=== PATIENT | female | born 1960 | race Caucasian/White ===

== ENCOUNTER 2018-05-31 06:03 | Emergency (ER) | payer BC, OTHER ==
[2018-05-31] MEDS ORDERED: Sodium Chloride 0.9% 1000 ML 1,000 ML IV STA (06:38)
[2018-05-31] MEDS ORDERED: Zofran 4 MG/2 ML VIAL IV ONE (06:38)
[2018-05-31] MEDS ORDERED: MORPHINE SULFATE 10 MG/ML IV ONE (06:40)
[2018-05-31] MEDS ORDERED: Sodium Chloride 0.9% 1000 ML 1,000 ML ONE (06:43)
[2018-05-31] MEDS ORDERED: MORPHINE SULFATE 10 MG/ML ONE (06:43)
[2018-05-31] MEDS ORDERED: Zofran 4 MG/2 ML VIAL ONE (06:43)
[2018-05-31 06:48] LABS: BASOPHIL % 0.1 % (0.0-0.4); Basophil (Absolute #) 0.01 (0-0.4); Eosinophil % 0.3 % (0.00-5.0); Eosinophil (Absolute #) 0.02 (0-0.5); Granulocyte Absolute (ANC) 6.79 (1.4-6.9); Granulocytes % 85.4 % (36.0-66.0); Hematocrit 44.1 % (35-47); Hemoglobin 14.3 gm/dl (12.0-16.0); Lymphocyte (Absolute #) 0.69 (1.0-4.6); Lymphocytes % 8.7 % (24.0-44.0); Mean Corpuscular Hemoglobin 27.9 pg (26-32); Mean Corpuscular Hgb Concent. 32.4 g/dl (32-36); Mean Platelet Volume 12.1 fl (6-9.5); Monocyte (Absolute #) 0.44 (0.0-1.3); Monocytes % 5.5 % (0.0-12.0); Platelet Count 298 K/mm3 (150-450); Red Blood Count 5.13 M/mm3 (4.1-5.4); Red Cell Distribution Width 13.5 % (11.5-14.0)
[2018-05-31 06:54] LABS: ALBUMIN 4.7 g/dL (3.5-5.0); ALKALINE PHOSPHATASE 90 U/L (38-126); AMYLASE 56 U/L (30-110); ANION GAP 17.1 MEQ/L (5-15); BLOOD UREA NITROGEN 14 mg/dL (7-17); CHLORIDE 105 mmol/L (98-107); Calcium 9.6 mg/dL (8.4-10.2); Carbon Dioxide 20 mmol/L (22-30); Creatinine 1 0.81 mg/dL (0.52-1.04); Glucose 117 mg/dL (74-106); LIPASE 30 U/L (23-300); Potassium 3.8 mmol/L (3.5-5.1); SGOT/AST 33 U/L (14-36); SGPT/ALT 30 U/L (0-35); SODIUM 139 mmol/L (137-145); Total Protein 7.4 g/dL (6.3-8.2)
[2018-05-31 07:03] LABS: Slide Review 1 YES
--- NOTE | 2018-05-31 07:04 | ERPHSYRPT ---
- History of Present Illness Historian: patient Exam Limitations: clinical condition Patient Subjective Stated Complaint: pt is alert and oriented. pt is ambulatory with a steady gait. pt states that she has had n/v/d since 05/30/18 at 1200. pt states she has vomited "about 10 times" and had diarrhea "about 8 times" the past 24 hours. pt bowel sounds present. pt states she is having pain in the center of her upper abdomen. abd soft with palpatation, tender in the center of her upper abdomen. pt denies being able to hold down any food or drink since 1200 yesterday. pt mucus membranes slightly dry. Triage Nursing Assessment: see above Timing/Duration: yesterday Activities at Onset: none Quality: cramping, stabbing Abdominal Pain Onset Location: LLQ, suprapubic Pain Radiation: no radiation Severity of Pain-Max: moderate Severity of Pain-Current: moderate Modifying Factors: Improves With: defecating, vomiting Associated Symptoms: diarrhea, fever/chills, nausea Previous symptoms: no prior history Hx Tetanus, Diphtheria Vaccination/Date Given: No Hx Influenza Vaccination/Date Given: Yes (2017) Hx Pneumococcal Vaccination/Date Given: No <PRECIOUS KNUTSON - Last Filed: 05/31/18 06:40> <AISHWARYA FAYE - Last Filed: 05/31/18 08:15> - History of Present Illness Time Seen by Provider: 05/31/18 06:20 Physician History: PATIENT WITH A HISTORY OF DEPRESSION COMPLAINS OF FREQUENT EPISODES OF EMESIS AND WATERY DIARRHEA SINCE YESTERDAY MORNING ASSOCIATED WITH GENERALIZED ABDOMINAL PAIN, AND LOW GRADE FEVER. DENIES MELENA, URINARY SYMPTOMS (PRECIOUS KNUTSON) Allergies/Adverse Reactions: No Known Drug Allergies Allergy (Unverified 02/27/14 13:46) Home Medications: Bupropion HCl [Wellbutrin] 300 mg PO DAILY 05/31/18 [History] - Review of Systems Constitutional: Fever Eyes: No Symptoms Ears, Nose, & Throat: No Symptoms Respiratory: No Symptoms, No Cough, No Dyspnea Cardiac: No Symptoms, No Chest Pain, No Edema, No Syncope Abdominal/Gastrointestinal: Abdominal Pain, Nausea, Vomiting, No Diarrhea Genitourinary Symptoms: No Symptoms, No Dysuria Musculoskeletal: No Symptoms, No Back Pain, No Neck Pain Skin: No Rash Neurological: No Symptoms, No Dizziness, No Focal Weakness, No Sensory Changes Psychological: No Symptoms Endocrine: No Symptoms All Other Systems: Reviewed and Negative <PRECIOUS KNUTSON Filed: 05/31/18 06:40> - Past Medical History Pertinent Past Medical History: Yes Neurological History: No Pertinent History ENT History: No Pertinent History Cardiac History: No Pertinent History Respiratory History: No Pertinent History Endocrine Medical History: No Pertinent History Musculoskeletal History: No Pertinent History GI Medical History: Other History: No Pertinent History Psycho-Social History: Anxiety, Depression Female Reproductive Disorders: No Pertinent History - Past Surgical History Past Surgical History: Yes Gastrointestinal: Cholecystectomy Female Surgical History: Hysterectomy Other Surgical History: NASAL LESION - Social History Smoking Status: Never smoker Exposure to second hand smoke: No Drug Use: none Patient Lives Alone: No - Female History Hx Now: No <PRECIOUS KNUTSON Filed: 05/31/18 06:40> - Physical Exam General Appearance: no apparent distress, alert Eye Exam: PERRL/EOMI, eyes nml inspection Ears, Nose, Throat Exam: normal ENT inspection, pharynx normal, moist mucous membranes Neck Exam: normal inspection, non-tender, supple, full range of motion Respiratory Exam: normal breath sounds, lungs clear, No respiratory distress Cardiovascular Exam: regular rate/rhythm, normal heart sounds Gastrointestinal/Abdomen Exam: soft, normal bowel sounds, tenderness (LEFT LOWER QUAD AND PERIUMBILICAL, NO GUARDING OR REBOUND TENDERNESS), No mass Back Exam: normal inspection, normal range of motion, No CVA tenderness, No vertebral tenderness Extremity Exam: normal inspection, normal range of motion, pelvis stable Neurologic Exam: alert, oriented x 3, cooperative, normal mood/affect, nml cerebellar function, sensation nml, No motor deficits Skin Exam: normal color, warm, dry SpO2 Interpretation: normal SpO2: 95 Oxygen Delivery: Room Air <PRECIOUS KNUTSON Filed: 05/31/18 06:40> - Nursing Vital Signs Nursing Vital Signs: Initial Vital Signs Temperature 98.1 F 05/31/18 06:03 Pulse Rate 82 05/31/18 06:03 Respiratory Rate 16 05/31/18 06:03 Blood Pressure 106/66 05/31/18 06:03 O2 Sat by Pulse Oximetry 95 05/31/18 06:03 Pain Scale Pain Intensity 7 - CT Exams Abdomen/Pelvis CT Interpretation: Negative, Tele-radiologist Report (Per Dr Hatfield), Other ( liquid stool in colon) <AISHWARYA FAYE - Last Filed: 05/31/18 08:15> Ordered Tests: Active Orders 24 hr Category Date Time Status Catheter-[place] STAT Care 05/31/18 06:38 Active Orthostatic Vital Signs STAT Care 05/31/18 06:38 Active ABDOMEN AND PELVIS W/0 CONTRAS [CT] Stat Exams 05/31/18 06:39 Taken AMYLASE Stat Lab 05/31/18 06:20 Completed BLOOD CULTURE Stat Lab 05/31/18 06:50 Received BMP Stat Lab 05/31/18 06:20 Completed CBC W DIFF Stat Lab 05/31/18 06:20 Completed CMP Stat Lab 05/31/18 06:20 Completed LIPASE Stat Lab 05/31/18 06:20 Completed Occult Blood,Stool Other Stat Lab 05/31/18 06:38 Uncollected UA W/RFX UR CULTURE Stat Lab 05/31/18 06:38 Ordered Medication Summary Discontinued Medications Generic Name Dose Route Start Last Admin Trade Name Brad PRN Reason Stop Dose Admin Sodium Chloride 1,000 mls @ 999 mls/hr 05/31/18 06:38 05/31/18 06:49 Sodium Chloride 0.9% 1000 Ml IV 05/31/18 07:38 999 mls/hr .Q1H1M STA Administration Sodium Chloride Confirm 05/31/18 06:43 Sodium Chloride 0.9% 1000 Ml Administered 05/31/18 06:44 Dose 1,000 mls @ ud .ROUTE .STK-MED ONE Morphine Sulfate 6 mg 05/31/18 06:40 05/31/18 06:50 Morphine Sulfate 10 Mg/Ml IV 05/31/18 06:41 6 mg STAT ONE Administration Morphine Sulfate Confirm 05/31/18 06:43 Morphine Sulfate 10 Mg/Ml Administered 05/31/18 06:44 Dose 10 mg .ROUTE .STK-MED ONE Ondansetron HCl 4 mg 05/31/18 06:38 05/31/18 06:50 Zofran 4 Mg/2 Ml Vial IV 05/31/18 06:39 4 mg STAT ONE Administration Ondansetron HCl Confirm 05/31/18 06:43 Zofran 4 Mg/2 Ml Vial Administered 05/31/18 06:44 Dose 4 mg .ROUTE .STK-MED ONE Promethazine HCl 12.5 mg 05/31/18 07:34 Phenergan 25 Mg Inj IV 05/31/18 07:35 STAT ONE Promethazine HCl Confirm 05/31/18 07:59 Phenergan 25 Mg Inj Administered 05/31/18 08:00 Dose 25 mg .ROUTE .STK-MED ONE Lab/Rad Data: Laboratory Result Diagrams 05/31/18 06:20 05/31/18 06:20 Laboratory Results 05/31/18 05/31/18 Range/Units 06:20 06:20 WBC 8.0 (4.0-10.5) K/mm3 RBC 5.13 (4.1-5.4) M/mm3 Hgb 14.3 (12.0-16.0) gm/dl Hct 44.1 (35-47) % MCV 86.0 (78-100) fl MCH 27.9 (26-32) pg MCHC 32.4 (32-36) g/dl RDW 13.5 (11.5-14.0) % Plt Count 298 (150-450) K/mm3 MPV 12.1 H (6-9.5) fl Gran % 85.4 H (36.0-66.0) % Eos # (Auto) 0.02 (0-0.5) Absolute Lymphs (auto) 0.69 L (1.0-4.6) Absolute Monos (auto) 0.44 (0.0-1.3) Lymphocytes % 8.7 L (24.0-44.0) % Monocytes % 5.5 (0.0-12.0) % Eosinophils % 0.3 (0.00-5.0) % Basophils % 0.1 (0.0-0.4) % Absolute Granulocytes 6.79 (1.4-6.9) Basophils # 0.01 (0-0.4) Sodium 139 (137-145) mmol/L Potassium 3.8 (3.5-5.1) mmol/L Chloride 105 (98-107) mmol/L Carbon Dioxide 20 L (22-30) mmol/L Anion Gap 17.1 H (5-15) MEQ/L BUN 14 (7-17) mg/dL Creatinine 0.81 (0.52-1.04) mg/dL Estimated GFR > 60.0 ML/MIN Glucose 117 H (74-106) mg/dL Calcium 9.6 (8.4-10.2) mg/dL Total Bilirubin 0.40 (0.2-1.3) mg/dL AST 33 (14-36) U/L ALT 30 (0-35) U/L Alkaline Phosphatase 90 (38-126) U/L Serum Total Protein 7.4 (6.3-8.2) g/dL Albumin 4.7 (3.5-5.0) g/dL Amylase 56 (30-110) U/L Lipase 30 (23-300) U/L Slides for Path Review YES <PRECIOUS KNUTSON - Last Filed: 05/31/18 06:40> - Progress Progress: improved Counseled pt/family regarding: lab results, diagnosis, rad results <AISHWARYA FAYE - Last Filed: 05/31/18 08:15> - Progress Progress Note: 05/31/18 06:44 IV NORMAL SALINE 500ML/HR X 2, ZOFRAN 4MG, MORPHINE 6MG IV 05/31/18 07:04 PATIENT CARE ENDORSED TO DR FAYE (PRECIOUS KNUTSON) 05/31/18 07:13 Pt care discussed and care accepted from Dr Knutson at 07:00. 05/31/18 08:08 Pt given MSO4 6 mg, zofran 4 mg, phenergan 12.5 mg, and fluids by IV, feeling better. (AISHWARYA FAYE) <PRECIOUS KNUTSON - Last Filed: 05/31/18 06:40> - Departure Time of Disposition: 08:09 Departure Disposition: Home Critical Care Time: No <AISHWARYA FAYE - Last Filed: 05/31/18 08:15> - Departure Clinical Impression: Gastroenteritis Condition: Stable Referrals: CHRISTIAN HUSTON [Primary Care Provider] - Additional Instructions: You have vomiting and diarrhea (gastroenteritis). You were given morphine 6 mg , Zofran 4 mg, Phenergan 12-1/2 mg, and fluids by IV in the ER. You may take Zofran 4 mg ODT every 6 hours as needed for vomiting. You may take Lomotil 2 tablets every 6 hours as needed for diarrhea. Began with a full liquid diet and advance as tolerated. Follow-up with your primary medical doctor tomorrow if no improvement. Prescriptions: Diphenoxylate HCl/Atropine [Lomotil Tablet] 2 each PO Q6H PRN PRN #12 tablet PRN Reason: Diarrhea Ondansetron ODT 4 MG [Zofran Odt 4 mg] 1 tab PO Q6H PRN PRN #10 tab.rapdis PRN Reason: Nausea/Vomiting
[2018-05-31] MEDS ORDERED: Phenergan 25 MG INJ IV ONE (07:34)
[2018-05-31] MEDS ORDERED: Phenergan 25 MG INJ ONE (07:59)
[2018-05-31 08:37] VITALS: BP 98/78; PULSE 84; O2SAT 97
--- NOTE | 2018-05-31 11:01 | XRAY ---
Indication: Abdominal pain, nausea, vomiting, diarrhea. Multiple contiguous axial images obtained through the abdomen and pelvis without contrast as ordered. Comparison: None Lung bases demonstrates mild bibasilar dependent atelectasis. No infiltrate or effusion. Heart is not enlarged. Small hiatal hernia. Noncontrasted stomach and bowel loops appear nonobstructed. Normal appendix. Previous cholecystectomy and hysterectomy. No free fluid/air. Remaining liver, pancreas, spleen, adrenal glands, kidneys, ureters, bladder, and aorta appear unremarkable for noncontrast exam. Osseous structures intact with minimal degenerative changes throughout the spine. No ventral or inguinal hernias. Impression: 1. Small hiatal hernia. 2. Remaining CT abdomen/pelvis without contrast exam is negative. Comment: Preliminary interpretation was made by C. No critical discrepancy. CTDI 28.05
== END 2018-05-31 08:36 | disposition home or self-care (01) ==
LOC: ED 06:03
DX: K52.9 Noninfective gastroenteritis and colitis, unspecified (principal); R11.2 Nausea with vomiting, unspecified; R10.32 Left lower quadrant pain; Z79.899 Other long term (current) drug therapy
CPT/HCPCS: 36415; 74176; 80048; 80053; 82150; 83690; 85025; 87040; 96360; 96374; 96375; 99284; J2270; J2405; J2550

== ENCOUNTER 2019-06-24 11:39 | Emergency (ER) | payer BC, OTHER ==
[2019-06-24 12:55] LABS: Absolute Neutrophil Ct (ANC) 6.44 (1.4-6.9); BASOPHIL % 0.3 % (0.0-0.4); Basophil (Absolute #) 0.02 (0-0.4); Eosinophil (Absolute #) 0.08 (0-0.5); Hematocrit 42.8 % (35-47); Hemoglobin 13.9 gm/dl (12.0-16.0); Lymphocyte (Absolute #) 0.68 (1.0-4.6); Lymphocytes % 8.8 % (24.0-44.0); Mean Cell Volume 85.8 fl (78-100); Mean Corpuscular Hemoglobin 27.9 pg (26-32); Mean Corpuscular Hgb Concent. 32.5 g/dl (32-36); Mean Platelet Volume 12.2 fl (6-9.5); Monocyte (Absolute #) 0.54 (0.0-1.3); Neutrophil % 82.9 % (36.0-66.0); Platelet Count 301 K/mm3 (150-450); Red Blood Count 4.99 M/mm3 (4.1-5.4); Red Cell Distribution Width 13.6 % (11.5-14.0); White Blood Count 7.8 K/mm3 (4.0-10.5)
[2019-06-24] MEDS ORDERED: Zofran 4 MG/2 ML VIAL IV ONE (12:57)
[2019-06-24 13:00] LABS: ALBUMIN 4.5 g/dL (3.5-5.0); ALKALINE PHOSPHATASE 71 U/L (38-126); ANION GAP 13.8 MEQ/L (5-15); BLOOD UREA NITROGEN 13 mg/dL (7-17); CHLORIDE 107 mmol/L (98-107); Calcium 9.7 mg/dL (8.4-10.2); Carbon Dioxide 23 mmol/L (22-30); Creatinine 1 0.63 mg/dL (0.52-1.04); Glucose 117 mg/dL (74-106); Potassium 3.9 mmol/L (3.5-5.1); SGOT/AST 25 U/L (14-36); SGPT/ALT 16 U/L (0-35); SODIUM 140 mmol/L (137-145); Total Protein 7.8 g/dL (6.3-8.2)
[2019-06-24] MEDS ORDERED: Zofran 4 MG/2 ML VIAL ONE (13:02)
[2019-06-24 13:16] LABS: Slide Review 1 YES
[2019-06-24] MEDS ORDERED: Sodium Chloride 0.9% 1000 ML 1,000 ML IV STA (13:19)
[2019-06-24] MEDS ORDERED: Sodium Chloride 0.9% 1000 ML 1,000 ML ONE (13:23)
--- NOTE | 2019-06-24 13:31 | XRAY ---
Indication: Fever, vomiting, diarrhea. Comparison: None 2 views of the abdomen nonacute and nonobstructed with cholecystectomy clips. Solid organs unremarkable. Osseous structures intact with minimal thoracolumbar degenerative changes and minimal double curvature scoliosis. Lung bases clear. Impression: Nonacute abdomen with chronic features.
--- NOTE | 2019-06-24 14:36 | ERPHSYRPT ---
- History of Present Illness Time Seen by Provider: 06/24/19 12:10 Historian: patient Exam Limitations: no limitations Patient Subjective Stated Complaint: vomiting and diarrhea since last night. vomited 11 times and had 8 stools. states several family members have been ill. Triage Nursing Assessment: ambulated to room per self. skin w/d, color normal. abd soft, nontender. normal bowel sounds. Physician History: N/V/D , FEVER ,CHILLS STARTED 11PM LAST NIGHT POS: [place] POS: FAMILY MEMBERS WITH SIMILAR S/S FEVER/CHILLS FLU LIKE S/S Timing/Duration: yesterday Activities at Onset: none Abdominal Pain Onset Location: RUQ, LUQ, LLQ, epigastric Pain Radiation: back Severity of Pain-Max: mild Severity of Pain-Current: mild (TO MODERATE) Allergies/Adverse Reactions: No Known Drug Allergies Allergy (Verified 06/24/19 11:51) Home Medications: Ergocalciferol (Vitamin D2) [Vitamin D2] 50,000 units PO WEEKLY 06/24/19 [ History] Lisinopril [Zestril] 2.5 mg PO DAILY 06/24/19 [History] Nebivolol HCl 5 MG [Bystolic 5 MG] 5 mg PO DAILY 06/24/19 [History] Non-Formulary Drug [Non-Formulary Item] 1 ea PO TID 06/24/19 [History] Hx Tetanus, Diphtheria Vaccination/Date Given: No Hx Influenza Vaccination/Date Given: Yes (2018) Hx Pneumococcal Vaccination/Date Given: Yes - Review of Systems Constitutional: Fever, Chills, Fatigue, Malaise Eyes: No Symptoms Ears, Nose, & Throat: Nose Congestion Respiratory: Cough Cardiac: No Symptoms Abdominal/Gastrointestinal: Abdominal Pain, Nausea, Vomiting, Diarrhea, Appetite Changes Genitourinary Symptoms: Hesitancy, No Flank Pain Musculoskeletal: Arthralgias, Back Pain, Myalgias Skin: No Symptoms Neurological: Headache, No Dizziness Psychological: No Symptoms Endocrine: No Symptoms Hematologic/Lymphatic: No Symptoms Immunological/Allergic: No Symptoms All Other Systems: Reviewed and Negative - Past Medical History Pertinent Past Medical History: Yes Neurological History: No Pertinent History ENT History: No Pertinent History Cardiac History: No Pertinent History Respiratory History: No Pertinent History Endocrine Medical History: No Pertinent History Musculoskeletal History: No Pertinent History GI Medical History: Other History: No Pertinent History Psycho-Social History: Anxiety, Depression Female Reproductive Disorders: No Pertinent History - Past Surgical History Past Surgical History: Yes Gastrointestinal: Cholecystectomy Female Surgical History: Hysterectomy Other Surgical History: NASAL LESION - Social History Smoking Status: Never smoker Exposure to second hand smoke: No Drug Use: none Patient Lives Alone: No - Female History Hx Now: No - Nursing Vital Signs Nursing Vital Signs: Initial Vital Signs Temperature 98.9 F 06/24/19 11:42 Pulse Rate 89 06/24/19 11:42 Respiratory Rate 16 06/24/19 11:42 Blood Pressure 105/76 06/24/19 11:42 O2 Sat by Pulse Oximetry 97 06/24/19 11:42 Pain Scale Pain Intensity 4 REVIEWED - Physical Exam General Appearance: no apparent distress Eye Exam: PERRL/EOMI, eyes nml inspection Ears, Nose, Throat Exam: TMs normal, moist mucous membranes, No pharyngeal erythema Neck Exam: normal inspection, non-tender, supple, full range of motion, No meningismus Respiratory Exam: normal breath sounds, lungs clear, airway intact, No chest tenderness, No respiratory distress, No diminished breath sounds Cardiovascular Exam: regular rate/rhythm, normal heart sounds, normal peripheral pulses, murmur Gastrointestinal/Abdomen Exam: tenderness (RUQ,LUQ/LLQ W/O GUARDING/REBOUND ), other (BOWEL SOUNDS DEMINISHED ), No guarding, No organomegaly, No bruit Pelvic Exam: deferred Rectal Exam: deferred Back Exam: normal inspection, normal range of motion, No CVA tenderness, No vertebral tenderness, No rash Extremity Exam: normal inspection, normal range of motion, pelvis stable, No calf tenderness Neurologic Exam: alert, cooperative, 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, normal mood/ affect, nml cerebellar function, nml station & gait Skin Exam: normal color Lymphatic Exam: No adenopathy, No inguinal node tender (L) SpO2 Interpretation: normal SpO2: 96 - Course Nursing assessment & vital signs reviewed: Yes - Radiology Exams Abdomen X-ray Interpretation: Other (RAD: NEGATIVE ACUTE CHANGES ) Ordered Tests: Active Orders 24 hr Category Date Time Status IV Insertion STAT Care 06/24/19 11:54 Active ABDOMEN 2 VIEW Stat Exams 06/24/19 12:58 Completed CBC W DIFF Stat Lab 06/24/19 11:50 Completed CMP Stat Lab 06/24/19 11:50 Completed CULTURE,URINE Stat Lab 06/24/19 14:34 Received UA W/RFX UR CULTURE Stat Lab 06/24/19 14:34 Completed Medication Summary Generic Name Dose Route Start Last Admin Trade Name Brad PRN Reason Stop Dose Admin Ceftriaxone Sodium/Dextrose 1 g in 50 mls @ 100 mls/hr 06/24/19 16:12 16:22 Rocephin 1 Gm-D5w 50 Ml Bag IV 06/24/19 16:41 100 ml/hr STAT STA 100 mls/hr Administration Discontinued Medications Generic Name Dose Route Start Last Admin Trade Name Brad PRN Reason Stop Dose Admin Hyoscyamine 0.25 mg 06/24/19 16:17 Anaspaz 0.125 Mg PO 06/24/19 16:18 NOW ONE Sodium Chloride 1,000 mls @ 999 mls/hr 06/24/19 13:19 06/24/19 14:25 Sodium Chloride 0.9% 1000 Ml IV 06/24/19 14:19 Infused .Q1H1M STA Infusion Sodium Chloride Confirm 06/24/19 13:23 Sodium Chloride 0.9% 1000 Ml Administered 06/24/19 13:24 Dose 1,000 mls @ ud .ROUTE .STK-MED ONE Ceftriaxone Sodium/Dextrose Confirm 06/24/19 16:18 Rocephin 1 Gm-D5w 50 Ml Bag Administered 06/24/19 16:19 Dose 1 g in 50 mls @ ud IV .STK-MED ONE Ondansetron HCl 4 mg 06/24/19 12:57 06/24/19 13:03 Zofran 4 Mg/2 Ml Vial IV 06/24/19 12:58 4 mg STAT ONE Administration Ondansetron HCl Confirm 06/24/19 13:02 Zofran 4 Mg/2 Ml Vial Administered 06/24/19 13:03 Dose 4 mg .ROUTE .STK-MED ONE Lab/Rad Data: Laboratory Result Diagrams 06/24/19 11:50 06/24/19 11:50 Laboratory Results 06/24/19 06/24/19 06/24/19 Range/Units 14:34 11:50 11:50 WBC 7.8 (4.0-10.5) K/mm3 RBC 4.99 (4.1-5.4) M/mm3 Hgb 13.9 (12.0-16.0) gm/dl Hct 42.8 (35-47) % MCV 85.8 (78-100) fl MCH 27.9 (26-32) pg MCHC 32.5 (32-36) g/dl RDW 13.6 (11.5-14.0) % Plt Count 301 (150-450) K/mm3 MPV 12.2 H (6-9.5) fl Gran % 82.9 H (36.0-66.0) % Eos # (Auto) 0.08 (0-0.5) Absolute Lymphs (auto) 0.68 L (1.0-4.6) Absolute Monos (auto) 0.54 (0.0-1.3) Lymphocytes % 8.8 L (24.0-44.0) % Monocytes % 7.0 (0.0-12.0) % Eosinophils % 1.0 (0.00-5.0) % Basophils % 0.3 (0.0-0.4) % Absolute Granulocytes 6.44 (1.4-6.9) Basophils # 0.02 (0-0.4) Sodium 140 (137-145) mmol/L Potassium 3.9 (3.5-5.1) mmol/L Chloride 107 (98-107) mmol/L Carbon Dioxide 23 (22-30) mmol/L Anion Gap 13.8 (5-15) MEQ/L BUN 13 (7-17) mg/dL Creatinine 0.63 (0.52-1.04) mg/dL Estimated GFR > 60.0 ML/MIN Glucose 117 H (74-106) mg/dL Calcium 9.7 (8.4-10.2) mg/dL Total Bilirubin 0.70 (0.2-1.3) mg/dL AST 25 (14-36) U/L ALT 16 (0-35) U/L Alkaline Phosphatase 71 (38-126) U/L Serum Total Protein 7.8 (6.3-8.2) g/dL Albumin 4.5 (3.5-5.0) g/dL Urine Color YELLOW (YELLOW) Urine Appearance CLOUDY (CLEAR) Urine pH 5.0 (5-6) Ur Specific [place] 1.026 (1.005-1.025) Urine Protein NEGATIVE (Negative) Urine Ketones NEGATIVE (NEGATIVE) Urine Blood NEGATIVE (0-5) Ruel/ul Urine Nitrite NEGATIVE (NEGATIVE) Urine Bilirubin NEGATIVE (NEGATIVE) Urine Urobilinogen NEGATIVE (0-1) mg/dL Ur Leukocyte Esterase MODERATE (NEGATIVE) Urine WBC (Auto) 11-15 (0-5) /HPF Urine RBC (Auto) 0-2 (0-2) /HPF U Epithel Cells (Auto) RARE (FEW) /HPF Urine Bacteria (Auto) FEW (NEGATIVE) /HPF Urine Mucus (Auto) MANY (NEGATIVE) /HPF Urine Culture Reflexed YES (NO) Urine Glucose NEGATIVE (NEGATIVE) mg/dL Slides for Path Review YES - Progress Progress: improved - Departure Departure Disposition: Home Clinical Impression: Flu syndrome, Gastroenteritis, UTI (urinary tract infection) Condition: Stable Critical Care Time: No Referrals: JOVANI GALLO [Primary Care Provider] -
[2019-06-24 14:43] LABS: Appearance CLOUDY (CLEAR); Bacteria FEW /HPF (NEGATIVE); Bilirubin NEGATIVE (NEGATIVE); Blood NEGATIVE Ery/ul (0-5); Epithelial Cells RARE /HPF (FEW); Glucose NEGATIVE (NEGATIVE); Ketones NEGATIVE (NEGATIVE); Leukocyte Esterase MODERATE (NEGATIVE); Mucus MANY /HPF (NEGATIVE); Nitrite NEGATIVE (NEGATIVE); Protein,Urine Dip NEGATIVE (Negative); RBC 0-2 /HPF (0-2); Specific Gravity 1.026 (1.005-1.025); Urobilinogen NEGATIVE mg/dL (0-1)
[2019-06-24] MEDS ORDERED: ROCEPHIN 1 Gm-D5w 50 ml Bag** 1 G/50 ML IVPB IV STA (16:12)
[2019-06-24] MEDS ORDERED: ANASPAZ 0.125 MG PO ONE (16:17)
[2019-06-24] MEDS ORDERED: ROCEPHIN 1 Gm-D5w 50 ml Bag** 1 G/50 ML IVPB IV ONE (16:18)
[2019-06-24 16:24] VITALS: BP 95/58; PULSE 87
[2019-06-24 16:30] VITALS: O2SAT 96
== END 2019-06-24 17:06 | disposition home or self-care (01) ==
LOC: ED 11:39
DX: J11.1 Influenza due to unidentified influenza virus with other respiratory manifestations (principal); K52.9 Noninfective gastroenteritis and colitis, unspecified; N39.0 Urinary tract infection, site not specified
CPT/HCPCS: 36000; 36415; 74021; 80053; 81001; 85025; 87086; 96360; 96365; 96374; 99284; J0696; J2405; A9270-GY